=== PATIENT | female | born 1995 | race Caucasian/White ===

== ENCOUNTER 2017-09-21 19:28 | Emergency (ER) | payer OTHER ==
[~2017-09-21] VITALS: Ht 170.2 cm; Wt 140.4 kg
[~2017-09-21 19:28] MED LIST: ADVAIR HFA120 INHAL2 IH; FLONASE16 G1 BOTH NARES; INDOCIN25 MG PO; LEVAQUIN500 MG PO; MUCUS RELIEF600 M1 PO; NORCO 5/3251 TABLET PO; PREDNISONE10 MG PO; PREDNISONE20 MG PO; PROAIR HFA8.5 GM IH; PROVENTIL,2.5 MG/0.5 AEROSOL; PROVENTIL,2.5 MG/3 M IH; PROVENTIL2.5 MG/3 M IH; SINGULAIR10 MG PO; VENTOLIN HFA18 GM IH; ZOFRAN ODT8 MG PO; ZOFRAN4 MG PO
[2017-09-21 22:15] VITALS: BP 126/67
== END 2017-09-21 22:16 | disposition home or self-care (01) ==
LOC: EME 19:28
DX: M79.604 Pain in right leg (principal); F17.200 Nicotine dependence, unspecified, uncomplicated; Z86.718 Personal history of other venous thrombosis and embolism
CPT/HCPCS: 93971; 99281; 99283